=== PATIENT | female | born 1950 | race African-American/Black ===

== ENCOUNTER 2019-09-04 16:31 | Emergency (ER) | payer BC, OTHER ==
[~2019-09-04] VITALS: Ht 152.4 cm; Wt 107.0 kg
[~2019-09-04 16:31] MED LIST: ACYC200C PO; ALPR-392 PO; ALPR1TAB2 PO; AMLO10TA4 PO; CELE200C PO; DEPER5 PO; IRBE1TAB13 PO; METO-293 PO; METO-385 PO; NASOI NS; NICO1PAT15 TD; OXYB15TA9 PO; OXYC-23 PO; RANI-655 PO; RISP1TAB26 PO; TEMA15CA5 PO
[2019-09-04] MEDS ORDERED: ACETAMINOPHEN 325MG TABLET PO STA (17:45)
[2019-09-04 18:30] LABS: BASOPHILS % 0.9 % (0.0-2.0); EOSINOPHILS % 1.7 % (0.0-5.0); HEMATOCRIT. 43.9 % (36.0-48.0); HEMOGLOBIN. 14.4 g/dL (12.0-16.0); LYMPHOCYTES % 23.3 % (20.0-50.0); MEAN CORPUSCULAR HEMOGLOBIN 29.9 pg (28.0-32.0); MEAN CORPUSCULAR VOLUME 91.2 fL (81.0-99.0); MEAN PLATELET VOLUME 8.4 fl (7.4-10.4); MONOCYTES % 6.5 % (2.0-8.0); NEUTROPHILS % 67.6 % (40.0-76.0); PLATELET 214 x1000/uL (130-400); RED BLOOD CELL COUNT 4.81 mill/uL (4.2-5.4); RED CELL DISTRIBUTION WIDTH 16.9 % (11.6-14.6)
[2019-09-04 18:52] LABS: T4 FREE 0.88 ng/dL (0.76-1.46)
[2019-09-04 19:34] LABS: CLARITY URINE CLEAR (CLEAR); COLOR URINE DARK YELLOW (YELLOW); KETONES URINE TRACE (NEGATIVE); LEUKOCYTE ESTERASE URINE TRACE (NEGATIVE); NITRITE URINE NEGATIVE (NEGATIVE); OCCULT BLOOD URINE 2+ (NEGATIVE); PROTEIN URINE NEGATIVE (NEGATIVE); SPECIFIC GRAVITY URINE 1.043 (1.005-1.030)
[2019-09-04 20:05] VITALS: BP 134/79
== END 2019-09-04 20:07 | disposition home or self-care (01) ==
LOC: ER 16:31
DX: R05 Cough (principal); R53.83 Other fatigue; R11.0 Nausea; R50.9 Fever, unspecified; F17.290 Nicotine dependence, other tobacco product, uncomplicated; K21.9 Gastro-esophageal reflux disease without esophagitis; I10 Essential (primary) hypertension; F41.9 Anxiety disorder, unspecified; Z90.710 Acquired absence of both cervix and uterus; Z98.890 Other specified postprocedural states; Z79.899 Other long term (current) drug therapy; Z88.2 Allergy status to sulfonamides
CPT/HCPCS: 36415; 71045; 80048; 81003; 84439; 84443; 99284

== ENCOUNTER 2022-06-01 17:01 | Emergency (ER) | payer BC, MEDICAID ==
[~2022-06-01] VITALS: Ht 167.6 cm; Wt 150.0 kg
[~2022-06-01 17:01] MED LIST changes: -ACYC200C PO; +ACYC200C31 PO; -RISP1TAB26 PO; +RISP1TAB97 PO
[2022-06-01 22:00] VITALS: BP 123/62
[2022-06-01] MEDS ORDERED: IBUPROFEN 600MG TABLET PO ONE (22:00)
[2022-06-02] MEDS ORDERED: IBUP-2028 MT (01:04)
== END 2022-06-02 01:30 | disposition home or self-care (01) ==
LOC: ER 17:01
DX: S29.011A Strain of muscle and tendon of front wall of thorax, initial encounter (principal); S39.011A Strain of muscle, fascia and tendon of abdomen, initial encounter; S50.02XA Contusion of left elbow, initial encounter; S50.01XA Contusion of right elbow, initial encounter; S80.212A Abrasion, left knee, initial encounter; S80.211A Abrasion, right knee, initial encounter; I10 Essential (primary) hypertension; F41.9 Anxiety disorder, unspecified; K21.9 Gastro-esophageal reflux disease without esophagitis; Z90.710 Acquired absence of both cervix and uterus; Z88.2 Allergy status to sulfonamides; V43.53XA Car driver injured in collision with pick-up truck in traffic accident, initial encounter; Y93.89 Activity, other specified; Y92.488 Other paved roadways as the place of occurrence of the external cause
CPT/HCPCS: 71045; 73070; 73560; 74176; 99284

== ENCOUNTER 2023-01-18 14:40 | Emergency (ER) | payer BC, MEDICAID ==
[~2023-01-18] VITALS: Ht 154.9 cm; Wt 101.0 kg
[~2023-01-18 14:40] MED LIST changes: +IBUP-2028 MT
[2023-01-18 15:04] LABS: BASOPHILS % 0.3 % (0.0-2.0); EOSINOPHILS % 1.4 % (0.0-5.0); HEMATOCRIT. 38.6 % (36.0-48.0); HEMOGLOBIN. 12.8 g/dL (12.0-16.0); LYMPHOCYTES % 14.3 % (20.0-50.0); MEAN CORPUSCULAR HEMOGLOBIN 29.5 pg (28.0-32.0); MEAN CORPUSCULAR VOLUME 89.1 fL (81.0-99.0); MEAN PLATELET VOLUME 7.6 fl (7.4-10.4); PLATELET 237 x1000/uL (130-400); RED BLOOD CELL COUNT 4.33 mill/uL (4.2-5.4); RED CELL DISTRIBUTION WIDTH 19.1 % (11.6-14.6)
[2023-01-18 15:15] LABS: CHLORIDE 111 mEq/L (98-107)
[2023-01-18] MEDS ORDERED: ALBUTEROL (0.5%) 2.5MG/0.5ML NEB HHN NR (22:15)
[2023-01-18] MEDS ORDERED: ACETAMINOPHEN 325MG TABLET PO NR (22:15)
[2023-01-18 22:37] LABS: CLARITY URINE CLEAR (CLEAR); COLOR URINE YELLOW (YELLOW); KETONES URINE NEGATIVE (NEGATIVE); LEUKOCYTE ESTERASE URINE TRACE (NEGATIVE); NITRITE URINE NEGATIVE (NEGATIVE); OCCULT BLOOD URINE TRACE (NEGATIVE); PH URINE 5.5 (4.5-8.0); PROTEIN URINE NEGATIVE (NEGATIVE); SPECIFIC GRAVITY URINE 1.023 (1.005-1.030)
[2023-01-18] MEDS ORDERED: ALBU6.7H3 INH (23:27)
[2023-01-18] MEDS ORDERED: OXYCODONE HCL/ACETAMINOPHEN 5/325MG TABLET PO NR (23:30)
[2023-01-19] VITALS: BP 169/72
== END 2023-01-19 01:08 | disposition home or self-care (01) ==
LOC: ER 14:40
DX: J20.9 Acute bronchitis, unspecified (principal); F41.9 Anxiety disorder, unspecified; K21.9 Gastro-esophageal reflux disease without esophagitis; I10 Essential (primary) hypertension; Z90.710 Acquired absence of both cervix and uterus; F17.200 Nicotine dependence, unspecified, uncomplicated
CPT/HCPCS: 36415; 71045; 80053; 81003; 83880; 84484; 85025; 93005; 94640; 99285; 99406